=== PATIENT | male | born 1955 | race Caucasian/White ===

== ENCOUNTER 2016-10-09 13:06 | Emergency (ER) | payer OTHER, SELFPAY ==
[2016-10-09 13:29] VITALS: BP 143/76
[2016-10-09] MEDS ORDERED: Clindamycin Phosphate 600 MG in Sodium Chloride 0.9% 100 ML IV ONE (14:05)
[2016-10-09] MEDS ORDERED: Sodium Chloride 0.9% 10 ML Syringe FLUSH PRN (14:05)
[2016-10-09] MEDS ORDERED: Cephalexin 500 MG Cap PO ONE (14:06)
--- NOTE | 2016-10-09 14:16 | EDM.PDOC ---
ED HPI GENERAL MEDICAL PROBLEM - General Chief Complaint: Lower Extremity Injury/Pain Stated Complaint: INFECTION OF RIGHT BIG TOE Time Seen by Provider: 10/09/16 13:52 Source of Information: Reports: Patient History Limitations: Reports: No Limitations - History of Present Illness INITIAL COMMENTS - FREE TEXT/NARRATIVE: Patient is a 61-year-old male presents ED complaining of infection to his right great toe. Patient states approx. 3 weeks ago while wearing rubber boots he developed wounds to the dorsal aspect of his left and right great toe. Wound to the left great toe is healing. There is some mild erythema present. No drainage. Minimal pain. Right great toe swelling has increased with purulent drainage along with worsening redness. He has a history of MRSA in the past. He has not been utilizing any [id number] medications in attempt to treat these infections. He has no history of diabetes. Initially he believed it was related to gout and thus took 2 indomethacin with no relief. Again pain is mild at this time. He denies any fever/chills, redness tracking up his leg, or any additional complaints. He has a history of gout, hypercholesteremia, anxiety, and chronic pain. He ran out of his prescriptions for allopurinol, simvastatin, alprazolam, and tramadol. Denies any surgical history to the affected foot/toes. Right 1-Hallux Pain Score (Numeric/FACES): 6 - Related Data Allergies Allergy/AdvReac Type Severity Reaction Status Date / Time No Known Allergies Allergy Verified 10/09/16 13:23 Past Medical History Cardiovascular History: Reports: High Cholesterol, Hypertension Respiratory History: Reports: Sleep Apnea Gastrointestinal History: Reports: GERD - Past Surgical History GI Surgical History: Reports: Colonoscopy Musculoskeletal Surgical History: Reports: Shoulder Surgery Social & Family History - Tobacco Use Smoking Status *Q: Former Smoker Used Tobacco, but Quit: Yes Month Tobacco Last Used: 24 - Caffeine Use Caffeine Use: Reports: Coffee - Recreational Drug Use Recreational Drug Use: No Review of Systems - Review of Systems Review Of Systems: ROS reveals no pertinent complaints other than HPI. ED EXAM, GENERAL - Physical Exam Exam: See Below Exam Limited By: No Limitations General Appearance: Alert, WD/WN, No Apparent Distress Ears: Hearing Grossly Normal Nose: Normal Inspection Throat/Mouth: Normal Voice, No Airway Compromise Neck: Normal Inspection, Supple Respiratory/Chest: No Respiratory Distress, Lungs Clear, Normal Breath Sounds, No Accessory Muscle Use, Chest Non-Tender Cardiovascular: Normal Peripheral Pulses, Regular Rate, Rhythm, No Murmur Peripheral Pulses: 2+: Radial (R), Posterior Tibial (L), Dorsalis Pedis (L) Neurological: Alert, Oriented, CN II-XII Intact, Normal Cognition, No Motor/ Sensory Deficits Psychiatric: Normal Affect, Normal Mood Lymphatic: Other (Right great toe: Significant swelling with purulent drainage, and redness extending up the dorsal aspect of the patient's right foot. Mild swelling present. Minimal pain present. No sensory deficits noted. Left great toe: Old wound in the late stages of healing to the dorsal aspect of the toe. Minimal redness. Present. Minimal pain.) Course - Vital Signs Last Recorded V/S: Last Vital Signs Temp 97.5 F 10/09/16 13:24 Pulse 61 10/09/16 13:24 Resp 18 10/09/16 13:24 BP 143/76 H 10/09/16 13:24 Pulse Ox 98 10/09/16 13:24 - Orders/Labs/Meds Orders: Active Orders 24 hr Category Date Time Status Peripheral IV Care [RC] . DIRECTED Care 10/09/16 14:05 Active Toes Great Toe Rt T5 [CR] Stat Exams 10/09/16 14:05 Taken Peripheral IV Insertion Adult [OM.PC] Stat Oth 10/09/16 14:03 Ordered Labs: Laboratory Tests 10/09/16 10/09/16 10/09/16 Range/Units 14:30 14:30 14:30 WBC 7.23 (4.23-9.07) K/mm3 RBC 3.68 L (4.63-6.08) M/mm3 Hgb 10.3 L (13.7-17.5) gm/L Hct 32.5 L (40.1-51.0) % MCV 88.3 (79.0-92.2) fl MCH 28.0 (25.7-32.2) pg MCHC 31.7 L (32.2-35.5) g/dl RDW Std Deviation 43.4 (35.1-43.9) fL Plt Count 212 (163-337) K/mm3 MPV 9.5 (9.4-12.3) fl Neut % (Auto) 67.7 (34.0-67.9) % Lymph % (Auto) 21.3 L (21.8-53.1) % Howell % (Auto) 9.7 (5.3-12.2) % Eos % (Auto) 0.7 L (0.8-7.0) Baso % (Auto) 0.3 (0.1-1.2) % Neut # (Auto) 4.90 (1.78-5.38) K/mm3 Lymph # (Auto) 1.54 (1.32-3.57) K/mm3 Howell # (Auto) 0.70 (0.30-0.82) K/mm3 Eos # (Auto) 0.05 (0.04-0.54) K/mm3 Baso # (Auto) 0.02 (0.01-0.08) K/mm3 Sodium 145 (136-145) mEq/L Potassium 3.9 (3.5-5.1) mEq/L Chloride 107 (98-107) mEq/L Carbon Dioxide 27 (21-32) mEq/L Anion Gap 14.9 (5-15) BUN 19 H (7-18) mg/dL Creatinine 1.2 (0.7-1.3) mg/dL Est Cr Clr Drug Dosing 62.54 mL/min Estimated GFR (MDRD) > 60 (>60) mL/min BUN/Creatinine Ratio 15.8 (14-18) Glucose 149 H (80-115) mg/dL Hemoglobin A1c (4.50-6.20) % Uric Acid 4.2 (3.5-7.2) mg/dL Calcium 8.6 (8.5-10.1) mg/dL Total Bilirubin 0.4 (0.2-1.0) mg/dL AST 21 (15-37) U/L ALT 23 (16-63) U/L Alkaline Phosphatase 51 (46-116) U/L C-Reactive Protein 28.4 H* (<1.0) mg/dL Total Protein 7.3 (6.4-8.2) g/dl Albumin 3.2 L (3.4-5.0) g/dl Globulin 4.1 gm/dL Albumin/Globulin Ratio 0.8 L (1-2) MRSA (PCR) 10/09/16 10/09/16 Range/Units 14:30 14:40 WBC (4.23-9.07) K/mm3 RBC (4.63-6.08) M/mm3 Hgb (13.7-17.5) gm/L Hct (40.1-51.0) % MCV (79.0-92.2) fl MCH (25.7-32.2) pg MCHC (32.2-35.5) g/dl RDW Std Deviation (35.1-43.9) fL Plt Count (163-337) K/mm3 MPV (9.4-12.3) fl Neut % (Auto) (34.0-67.9) % Lymph % (Auto) (21.8-53.1) % Howell % (Auto) (5.3-12.2) % Eos % (Auto) (0.8-7.0) Baso % (Auto) (0.1-1.2) % Neut # (Auto) (1.78-5.38) K/mm3 Lymph # (Auto) (1.32-3.57) K/mm3 Howell # (Auto) (0.30-0.82) K/mm3 Eos # (Auto) (0.04-0.54) K/mm3 Baso # (Auto) (0.01-0.08) K/mm3 Sodium (136-145) mEq/L Potassium (3.5-5.1) mEq/L Chloride (98-107) mEq/L Carbon Dioxide (21-32) mEq/L Anion Gap (5-15) BUN (7-18) mg/dL Creatinine (0.7-1.3) mg/dL Est Cr Clr Drug Dosing mL/min Estimated GFR (MDRD) (>60) mL/min BUN/Creatinine Ratio (14-18) Glucose (80-115) mg/dL Hemoglobin A1c 6.40 H (4.50-6.20) % Uric Acid (3.5-7.2) mg/dL Calcium (8.5-10.1) mg/dL Total Bilirubin (0.2-1.0) mg/dL AST (15-37) U/L ALT (16-63) U/L Alkaline Phosphatase (46-116) U/L C-Reactive Protein (<1.0) mg/dL Total Protein (6.4-8.2) g/dl Albumin (3.4-5.0) g/dl Globulin gm/dL Albumin/Globulin Ratio (1-2) MRSA (PCR) Negative Meds: Medications Discontinued Medications Generic Name Dose Route Start Last Admin Trade Name Gregorio PRN Reason Stop Dose Admin Cephalexin 500 mg 10/09/16 14:06 10/09/16 14:12 Keflex PO 10/09/16 14:07 500 mg ONETIME ONE Administration Clindamycin Phosphate 600 mg/ 104 mls @ 100 mls/hr 10/09/16 14:05 10/09/16 14 :12 Sodium Chloride IV 10/09/16 15:07 100 mls/hr ONETIME ONE Administration Sodium Chloride 10 ml 10/09/16 14:10/09/16 14:12 Saline Flush FLUSH 10 ml ASDIRECTED PRN Administration Keep Vein Open - Re-Assessments/Exams Free Text/Narrative Re-Assessment/Exam: IV will be established with clindamycin 600 mg IV and also Keflex 500 mg by mouth. Initial labs include CRP, CBC, chem 14, and MRSA culture nasal. We'll obtain x-ray of the right great toe to evaluate for osteomyelitis. Excess skin will require debridement. If pus present will attempt to culture. 10/09/16 14:52 x-ray revealed no obvious osteomyelitis. No fractures present. Degenerative changes noted. Final interpretation is pending. Reviewed with Dr. Nunez. 10/09/16 15:23Labs reviewed: Sodium 145, potassium 3.9, AG 13.9, creatinine 1.2 , glucose 149, CRP is elevated at 28.4,, white blood cell count 10.23, hemoglobin 10.3, with no neutrophilia. [id number] Initially believed their was a puss pocket to the top of the toe. Utilizing iris scissors cut into the macerated skin. No puss present. Tissue was falling apart. Appears to be two channels that run deep. Stopped and consulted Dr. Rehman. 10/09/16 16:[address] Rehman pet resort concierge general surgeon. Suggest ortho and or podiatry to manage. Admit to hospitalists obtain MRI and consult ortho/ podiatry. 10/09/16 16:[address] Shannon she suggest transferring to [place] for ortho/podiatry unless Dr. Gallego agrees to see the patient tomorrow on consultation. We have no ortho pet resort concierge today. Contacted he suggest patient go to [place]. [phone] Baker pneumatic tool operator hospitalists. He has accepted the patient. Will arrange transport. 10/09/16 17:33 Dressing applied to affected toe. Surgical boot ordered. Patient refuses ambulance transport due to no insurance. He will drive his own vehicle. MRSA negative. Departure - Departure Time of Disposition: 16:24 Disposition: DC/Tfer to Acute Hospital 02 Condition: Fair Clinical Impression: Cellulitis of great toe of right foot - Discharge Information Instructions: Cellulitis, Adult, [id number] Referrals: PCP,Not In Area [Primary Care Provider] - Forms: ED Department Discharge Additional Instructions: Dr. Mackay [facility] with [facility] has accepted you. You will require admission to the hospital. Enter on the east side of the hospital by the E.D. Do not drink or eat anything until told differently with admission. - My Orders Last 24 Hours: My Active Orders 10/09/16 14:03 Peripheral IV Insertion Adult [OM.PC] Stat 10/09/16 14:05 Peripheral IV Care [RC] . DIRECTED Toes Great Toe Rt T5 [CR] Stat - Assessment/Plan Last 24 Hours: My Active Orders 10/09/16 14:03 Peripheral IV Insertion Adult [OM.PC] Stat 10/09/16 14:05 Peripheral IV Care [RC] . DIRECTED Toes Great Toe Rt T5 [CR] Stat
--- NOTE | 2016-10-10 07:41 | CR ---
Right first toe: Three views of the right first toe were obtained. Comparison: No previous exam. Findings: Soft tissue air and swelling is noted around the IP joint of the first digit. Cyst is noted within the distal first metatarsal which is felt to be incidental. Mild degenerative change is noted within the first digit. No focal erosive change is seen to indicate definite osteomyelitis at this time. Impression: 1. Degenerative change, soft tissue air and soft tissue swelling. 2. No definite findings of osteomyelitis are seen at this time. Diagnostic code #3
== END 2016-10-09 18:00 ==
LOC: JD.ED 13:06
DX: L03.031 Cellulitis of right toe (principal); E78.00 Pure hypercholesterolemia, unspecified; F41.9 Anxiety disorder, unspecified; I10 Essential (primary) hypertension; K21.9 Gastro-esophageal reflux disease without esophagitis; Z87.891 Personal history of nicotine dependence
CPT/HCPCS: 36415; 73660; 80053; 83036; 84550; 85025; 86140; 87641; 96365; 97597; 99285; A9270; J7030; J7050